=== PATIENT | male | born 2000 | race Caucasian/White ===

== ENCOUNTER 2020-08-14 18:29 | Emergency (ER) | payer OTHER ==
[~2020-08-14] VITALS: Ht 170.2 cm; Wt 72.6 kg
== END 2020-08-14 21:38 | disposition home or self-care (01) ==
LOC: ER 18:29 → EMR PED 18:56 → ER 18:56 → EMR PED 21:38
DX: B34.9 Viral infection, unspecified (principal); Z20.828 Contact with and (suspected) exposure to other viral communicable diseases